=== PATIENT | male | born 1945 | race Caucasian/White ===

== ENCOUNTER 2018-01-06 21:44 | Emergency (ER) | payer OTHER ==
[~2018-01-06] VITALS: Ht 160 cm; Wt 62.1 kg
[2018-01-06 21:51] VITALS: BP 180/101
[2018-01-06] MEDS ORDERED: BACITRACIN OINT 500 UNITS/GM PKT TP ONE (22:25)
[2018-01-06] MEDS ORDERED: ACETAMINOPHEN 325 MG TAB PO ONE (22:25)
[2018-01-06] MEDS ORDERED: KETOROLAC 30 MG/ML VIAL IM ONE (22:25)
[2018-01-06 23:51] VITALS: BP 143/80
== END 2018-01-06 23:51 | disposition home or self-care (01) ==
LOC: MED 21:44
DX: S20.219A Contusion of unspecified front wall of thorax, initial encounter (principal); S40.011A Contusion of right shoulder, initial encounter; E11.9 Type 2 diabetes mellitus without complications; Z90.89 Acquired absence of other organs; V43.52XA Car driver injured in collision with other type car in traffic accident, initial encounter; Y93.I9 Activity, other involving external motion; Y92.488 Other paved roadways as the place of occurrence of the external cause; Y99.8 Other external cause status
CPT/HCPCS: 71250; 72125; 73130; 96372; 99284; J1885; Q0092

== ENCOUNTER 2018-01-08 20:43 | Emergency (ER) | payer OTHER ==
[~2018-01-08] VITALS: Ht 160 cm; Wt 56.7 kg
[2018-01-08 20:59] VITALS: BP 134/79
--- NOTE | 2018-01-08 21:03 | NUR ---
PT TRIAGED AND SENT TO ER LOBBY
--- NOTE | 2018-01-08 21:24 | NUR ---
PT AMBULATED TO BED 1 AT THIS TIME
--- NOTE | 2018-01-08 21:29 | NUR ---
PT C/O HAND SWELLING AND BLISTERS ON R HAND S/P ACCIDENT, SEEN HERE POST ACCIDENT LAST WEEK. NO OTHER COMPLAINTS AT THIS TIME. 02/01 PAIN, CMS INTACT.+ SWELLING. VSS HX: DIABETES MEDS: INSULIN
[2018-01-08] MEDS ORDERED: SULFAMETH/TRIMETH DS 800/160MG 1 TAB PO ONE (22:05)
[2018-01-08] MEDS ORDERED: BACITRACIN OINT 500 UNITS/GM PKT TP ONE (22:05)
[2018-01-08 22:26] VITALS: BP 128/75
--- NOTE | 2018-01-08 22:27 | NUR ---
Patient discharged with v/s stable. Written and verbal after care instructions given and explained. Patient alert, oriented and verbalized understanding of instructions. Ambulatory with steady gait. All questions addressed prior to discharge. ID band removed. Patient advised to follow up with PMD. Rx of BACTRIM AND BACITRACIN given. Patient educated on indication of medication including possible reaction and side effects. Opportunity to ask questions provided and answered.
== END 2018-01-08 22:26 | disposition home or self-care (01) ==
LOC: MED 20:43
DX: T23.201A Burn of second degree of right hand, unspecified site, initial encounter (principal); E11.9 Type 2 diabetes mellitus without complications; V49.9XXA Car occupant (driver) (passenger) injured in unspecified traffic accident, initial encounter; Y93.I9 Activity, other involving external motion; Y92.488 Other paved roadways as the place of occurrence of the external cause; Y99.8 Other external cause status
CPT/HCPCS: 16020; 99284

== ENCOUNTER 2018-01-12 12:09 | Emergency (ER) | payer MEDICARE, OTHER ==
[~2018-01-12] VITALS: Ht 160 cm; Wt 56.8 kg
[2018-01-12 12:39] VITALS: BP 101/55
--- NOTE | 2018-01-12 14:03 | NUR ---
PT AMBULATES W/ STEADY GAIT TO CHAIR E AT THIS TIME W/O INCIDENT.
--- NOTE | 2018-01-12 14:08 | NUR ---
PT C/O RECHECK FOR WEST AND BLISTERS ON R HAND. DENIES PAIN.
[2018-01-12 15:21] VITALS: BP 128/78
--- NOTE | 2018-01-12 15:22 | NUR ---
Patient discharged with v/s stable. Written and verbal after care instructions given and explained. Patient verbalized understanding. Ambulatory with steady gait. All questions addressed prior to discharge. Advised to follow up with PMD.
== END 2018-01-12 15:22 | disposition home or self-care (01) ==
LOC: MED 12:09
DX: T23.201D Burn of second degree of right hand, unspecified site, subsequent encounter (principal); E11.9 Type 2 diabetes mellitus without complications; W22.10XD Striking against or struck by unspecified automobile airbag, subsequent encounter; V43.92XD Unspecified car occupant injured in collision with other type car in traffic accident, subsequent encounter
CPT/HCPCS: 99283

== ENCOUNTER 2018-01-13 05:00 | Emergency (ER) | payer MEDICARE ==
[~2018-01-13] VITALS: Ht 160 cm; Wt 57.6 kg
[2018-01-13 05:05] VITALS: BP 162/69
--- NOTE | 2018-01-13 05:05 | NUR ---
TO BED # 11 AMBULATORY, REPORT GIVEN TO ANIYA RN
--- NOTE | 2018-01-13 05:10 | NUR ---
PATIENT IS A 72 Y/O MALE WHO PRESENTS TO THE ED FOR MED REFILL. PT WAS SEEN RECENTLY FOR TC IN ER, WAS GIVEN RX AND NOW REQUESTING REFILL. PT REPORTS 5/10 ACHING PAIN. PT DENIES CP, SOB, N/V/D. PT AWAKE AND ALERT, RR EVEN/UNLABORED. PT REPOSITIONED FOR COMFORT, BED IN LOWEST POSITION. ER MD DR. DIOP NOTIFIED. WILL CONTINUE TO MONITOR. Addendum: 01/13/18 at 0515 by MEDDCV PATIENT IS A 72 Y/O MALE WHO PRESENTS TO THE ED FOR MED REFILL. PT WAS SEEN RECENTLY FOR TC IN ER, WAS GIVEN RX AND NOW REQUESTING REFILL. PT REPORTS 10/10 ACHING PAIN. PT DENIES CP, SOB, N/V/D. PT AWAKE AND ALERT, RR EVEN/UNLABORED. PT REPOSITIONED FOR COMFORT, BED IN LOWEST POSITION. ER MD DR. DIOP NOTIFIED. WILL CONTINUE TO MONITOR.
[2018-01-13] MEDS ORDERED: BACITRACIN OINT 500 UNITS/GM PKT TP ONE ×2 (05:20→05:23)
--- NOTE | 2018-01-13 05:31 | NUR ---
PER VERBAL ORDER FROM ER MD, PT R HAND TREATED WITH BACITRACIN, XEROFORM DRESSING, NON ADHERENT DRESSING, AND ROLLER GAUZE. +CSM
[2018-01-13 05:40] VITALS: BP 145/82
--- NOTE | 2018-01-13 05:40 | NUR ---
Patient discharged with v/s stable. Written and verbal after care instructions given and explained. Patient alert, oriented and verbalized understanding of instructions. Ambulatory with steady gait. All questions addressed prior to discharge. ID band removed. Patient advised to follow up with PMD. Rx of BACTRIM 800MG-160MG, BACITRACIN 500U/G AND MOTRIN 600MG given. Patient educated on indication of medication including possible reaction and side effects. Opportunity to ask questions provided and answered.
== END 2018-01-13 05:40 | disposition home or self-care (01) ==
LOC: MED 05:00
DX: T23.01 Burn of unspecified degree of thumb (nail) (principal); E11.9 Type 2 diabetes mellitus without complications; Z76.0 Encounter for issue of repeat prescription; X08.8XXD Exposure to other specified smoke, fire and flames, subsequent encounter
CPT/HCPCS: 99283

== ENCOUNTER 2018-01-15 16:27 | Emergency (ER) | payer MEDICARE ==
[~2018-01-15] VITALS: Ht 165.1 cm; Wt 63.5 kg
[2018-01-15 16:44] VITALS: BP 127/61
--- NOTE | 2018-01-15 16:50 | NUR ---
Patient ambulated to bed 7. RN evaluating patient at bedside.
--- NOTE | 2018-01-15 16:51 | NUR ---
72 YO M BIB SELF FOR RECHECK OF RIGHT HAND. PT HAS BLISTERS NOTED TO R HAND AND IS REQUESTING RE-WRAP. PT WAS SEEN HERE ON TUESDAY.PT DENIES N/V/D; AAOX4, PERRL, WITH EVEN AND STEADY GAIT; LUNGS CLEAR BL, BREATHING UNLABORED; HR EVEN AND REGULAR, BL PERIPHERAL PULSES PRESENT; BS ACTIVE X4, NO TENDERNESS TO PALPATION, NO HEPATOSPLENOMEGALLY PALPATED, RESONANT TO PERCUSSION; PT DENIES ANY FEVER, CP, SOB, OR COUGH AT THIS TIME; PT STATES 0/10 PAIN AT THIS TIME; VSS; PATIENT POSITIONED FOR COMFORT; HOB ELEVATED; BEDRAILS UP X2; BED DOWN. HX DENIES RX ON FILE
--- NOTE | 2018-01-15 16:53 | NUR ---
Dr. Villegas evaluating patient at bedside.
[2018-01-15 17:24] VITALS: BP 129/79
== END 2018-01-15 17:25 | disposition home or self-care (01) ==
LOC: MED 16:27
DX: T23.201D Burn of second degree of right hand, unspecified site, subsequent encounter (principal); E11.9 Type 2 diabetes mellitus without complications; Z48.01 Encounter for change or removal of surgical wound dressing; X58.XXXD Exposure to other specified factors, subsequent encounter
CPT/HCPCS: 99283

== ENCOUNTER 2018-01-18 15:47 | Emergency (ER) | payer MEDICARE ==
[~2018-01-18] VITALS: Ht 160 cm; Wt 57.6 kg
[2018-01-18 16:03] VITALS: BP 112/62
[2018-01-18 17:39] VITALS: BP 112/62
== END 2018-01-18 17:40 | disposition home or self-care (01) ==
LOC: MED 15:47
DX: Z48.01 Encounter for change or removal of surgical wound dressing (principal); E11.9 Type 2 diabetes mellitus without complications; Z88.0 Allergy status to penicillin
CPT/HCPCS: 82948; 99281

== ENCOUNTER 2018-05-27 14:00 | Emergency (ER) | payer MEDICARE, OTHER ==
[~2018-05-27] VITALS: Ht 154.9 cm; Wt 57.7 kg
[2018-05-27 14:05] VITALS: BP 132/68
--- NOTE | 2018-05-27 14:05 | NUR ---
PATIENT TRIAGED. VSS, SENT TO ER LOBBY.
--- NOTE | 2018-05-27 14:06 | NUR ---
PATIENT UNABLE TO URINATE AT THIS TIME. PT GIVEN URINE CUP AND WATER.
--- NOTE | 2018-05-27 14:10 | NUR ---
72 Y/O M PT C/O URINARY/UTI SX'S SINCE LAST NIGHT, REPORTS PAIN AND BLOOD. PT DENIES N/V/D; SKIN IS INTACT, PINK/WARM/DRY; AAOX4, PERRL, WITH EVEN AND STEADY GAIT; LUNGS CLEAR BL, BREATHING UNLABORED; HR EVEN AND REGULAR, BL PERIPHERAL PULSES PRESENT; BS ACTIVE X4, NO TENDERNESS TO PALPATION, NO HEPATOSPLENOMEGALLY PALPATED, RESONANT TO PERCUSSION; PT DENIES ANY FEVER, CP, SOB, OR COUGH AT THIS TIME; PT STATES 7/10 PAIN AT THIS TIME; VSS; PATIENT POSITIONED FOR COMFORT; HOB ELEVATED; BEDRAILS UP X2; BED DOWN. PMH---DM ALLERGIES---PCN
--- NOTE | 2018-05-27 14:33 | NUR ---
INFORMED DR. SEAY THAT BS IS 437 AT THIS TIME. STATED WE WILL FIX IT.
[2018-05-27 15:00] LABS: BILIRUBIN,URINE 1+ (NEGATIVE); BLOOD, URINE 3+ (NEGATIVE); LEUKOCYTE ESTERASE ,URINE 2+ (NEGATIVE); NITRITE, URINE POSITIVE (NEGATIVE); UGLUCOSE 3+ (NEGATIVE)
--- NOTE | 2018-05-27 15:00 | NUR ---
ASKED AGAIN ABOUT BS 437 FOR PT, NO NEW ORDERS GIVEN.
[2018-05-27 15:01] LABS: APPEARANCE,URINE CLOUDY (CLEAR); COLOR,URINE BLOODY (YELLOW)
[2018-05-27 15:06] LABS: RBC,URINE TOO NUMEROUS TO COUN /HPF (0-5); WBC,URINE 60-80 /HPF (0-5)
[2018-05-27] MEDS ORDERED: KETOROLAC 60 MG/2 ML VIAL IM ONE (15:35)
[2018-05-27] MEDS ORDERED: cefTRIAXone 1,000 MG in LIDOCAINE 1% ***ER ONLY *** 2.1 ML IM ONE (15:35)
[2018-05-27] MEDS ORDERED: LEVOFLOXACIN 500 MG TAB PO ONE (15:35)
[2018-05-27] MEDS ORDERED: cefTRIAXone 1,000 MG VIAL ONE (15:47)
[2018-05-27] MEDS ORDERED: LIDOCAINE MPF 1% 5mL VIAL ONE (15:48)
[2018-05-27 16:39] VITALS: BP 129/65
--- NOTE | 2018-05-27 16:40 | NUR ---
Patient discharged with v/s stable. Written and verbal after care instructions given and explained. Patient alert, oriented and verbalized understanding of instructions. Ambulatory with steady gait. All questions addressed prior to discharge. ID band removed. Patient advised to follow up with PMD. Rx of FLOMAX, LEVAQUIN given. Patient educated on indication of medication including possible reaction and side effects. Opportunity to ask questions provided and answered.
[2018-05-28] MEDS ORDERED: HUM SUBQ (22:46)
== END 2018-05-27 16:40 | disposition home or self-care (01) ==
LOC: MED 14:00
DX: N39.0 Urinary tract infection, site not specified (principal); R31.9 Hematuria, unspecified; E11.9 Type 2 diabetes mellitus without complications; Z88.0 Allergy status to penicillin; Z79.4 Long term (current) use of insulin
CPT/HCPCS: 81001; 87086; 87186; 96372; 99283; J0696; J1885; J2001

== ENCOUNTER 2018-05-28 15:17 | Inpatient (IN) | payer MEDICARE, OTHER ==
[~2018-05-28] VITALS: Ht 157.5 cm; Wt 59.9 kg
[2018-05-28 15:35] VITALS: BP 103/56
--- NOTE | 2018-05-28 16:08 | NUR ---
PT C/O VOMITING SINCE TODAY. REPORTS ABD PAIN 11/01. PT WAS SEEN HERE YESTERDAY FOR BACK PAIN. VSS; PATIENT POSITIONED FOR COMFORT; HOB ELEVATED; BEDRAILS UP X1; BED DOWN. ER MD MADE AWARE OF PT STATUS.
[2018-05-28] MEDS ORDERED: METOCLOPRAMIDE 10 MG/2 ML INJ VIAL IVP ONE (16:15)
[2018-05-28] MEDS ORDERED: ONDANSETRON 4 MG/2 ML VIAL IVP ONE ×2 (16:15→19:20)
[2018-05-28] MEDS ORDERED: NACL 0.9% 1,000 ML IV ONE (16:15)
[2018-05-28] MEDS ORDERED: FAMOTIDINE 20 MG/2 ML VIAL IVP ONE (16:15)
[2018-05-28 16:43] LABS: HEMATOCRIT 39.2 % (36-52); HEMOGLOBIN 12.9 g/dL (12.0-18.0); LYMPHOCYTES # (AUTO) 1.1 K/uL (2.0-11.5); LYMPHOCYTES % (AUTO) 5.5 % (20.5-51.1); MEAN CORPUSCULAR HEMOGLOBIN 27 pg (27-31); MEAN CORPUSCULAR HGB CONC 33 g/dL (33-37); MEAN CORPUSCULAR VOLUME 81.9 fL (80-94); MONOCYTES # (AUTO) 1.7 K/uL (0.8-1.0); MONOCYTES % (AUTO) 8.6 % (1.7-9.3); NEUTROPHILS # (AUTO) 17.1 K/uL (1.8-7.7); NEUTROPHILS % (AUTO) 85.9 % (42.2-75.2); PLATELET COUNT (AUTO) 256 K/uL (140-450); RED BLOOD CELL COUNT(AUTO) 4.78 MIL/uL (4.20-6.10); RED CELL DISTRIBUTION WIDTH 13.1 % (11.6-13.7); WHITE BLOOD COUNT (AUTO) 19.9 K/uL (4.8-10.8)
[2018-05-28] MEDS: NACL 0.9% 1,000 ML IV SCH ×3 (16:45→23:06)
[2018-05-28 16:47] LABS: BILIRUBIN,URINE NEGATIVE (NEGATIVE); BLOOD, URINE 3+ (NEGATIVE); LEUKOCYTE ESTERASE ,URINE 3+ (NEGATIVE); NITRITE, URINE NEGATIVE (NEGATIVE); UGLUCOSE 2+ (NEGATIVE)
[2018-05-28 16:48] LABS: APPEARANCE,URINE CLOUDY (CLEAR); COLOR,URINE AMBER (YELLOW)
[2018-05-28 16:53] LABS: CARBON DIOXIDE 29.3 mmol/L (21-32); CHLORIDE 89 mmol/L (98-107); POTASSIUM 4.3 mmol/L (3.5-5.1); SODIUM SERUM 125 mmol/L (136-145)
[2018-05-28 16:54] LABS: CREATININE 1.4 mg/dL (0.7-1.3); GLUCOSE 145 mg/dL (74-106); UREA NITROGEN, BLOOD 30 mg/dL (7-18)
[2018-05-28 16:56] LABS: RBC,URINE TOO NUMEROUS TO COUN /HPF (0-5); WBC,URINE 80-100 /HPF (0-5)
[2018-05-28 17:00] LABS: ALBUMIN 2.9 g/dL (3.4-5.0); ASPARTATE AMINOTRANSFERASE 16 U/L (15-37); PROTHROMBIN TIME 10.1 secs (10.8-13.4); TOTAL BILIRUBIN 0.7 mg/dL (0.0-1.0)
[2018-05-28 17:01] LABS: AMYLASE 35 U/L (25-115); LIPASE 70 U/L (73-393)
--- NOTE | 2018-05-28 17:30 | NUR ---
PATIENT RESTING, FRIEND AT BEDSIDE
[2018-05-28] MEDS ORDERED: NACL 0.9% 1,000 ML IV SCH (17:31)
[2018-05-28] MEDS ORDERED: GENTAMICIN 80 MG in DEXTROSE 5% 100 ML IV ONE (17:35)
[2018-05-28] MEDS ORDERED: LEVOFLOXACIN 500 MG/D5W PREMIX 100 ML IV ONE (17:35)
[2018-05-28] MEDS ORDERED: GENTAMICIN 80 MG/2 ML VIAL ONE (17:46)
[2018-05-28] MEDS ORDERED: SODIUM PHOSPHATE 118 ML ENEM RC ONE (18:35)
--- NOTE | 2018-05-28 19:04 | NUR ---
REPORT FROM JOSE DE JESUS KELLER. FIRST CONTACT WITH PATIENT, PATIENT ON STRETCHER IN SUPINE POSITION EYES OPEN , RESPONDS TO QUESTIONS APPROPRIATELY. PATIENT ASSISTED ONTO BEDPAN AT THIS TIME.
--- NOTE | 2018-05-28 19:04 | NUR ---
REPORT GIVEN TO ARIANNA GORE.
[2018-05-28] MEDS ORDERED: MORPHINE SULFATE 4 MG/ML SYR IVP ONE (19:20)
--- NOTE | 2018-05-28 20:08 | NUR ---
PT AMBULATED TO RESTROOM AND HAD 1 MEDIUM SIZED BM PER PATIENT OF FORMED STOOL
--- NOTE | 2018-05-28 20:36 | NUR ---
PT UNAWARE OF HOME MEDICATION LIST
[2018-05-28] MEDS ORDERED: ONDANSETRON 4 MG/2 ML VIAL IM/IVP PRN (21:55)
[2018-05-28] MEDS ORDERED: HYDROcodone/APAP 7.5/325 MG 1 TAB PO PRN (21:55)
[2018-05-28] MEDS ORDERED: DOCUSATE SODIUM 100 MG GELCAP PO PRN (21:55)
[2018-05-28] MEDS ORDERED: ACETAMINOPHEN 325 MG TAB PO PRN (21:55)
--- NOTE | 2018-05-28 21:57 | NUR ---
PT ON STRETCHER IN SUPINE POSITION, RESPIS E/U, NO C/O CP OR SOB AT THIS TIME. BED IN LOW POSITION, SIDE RAILS UP, WILL CONTINUE TO MONITOR CLOSELY.
--- NOTE | 2018-05-28 22:19 | NUR ---
Patient will be admitted to care of [facility]. Admited to [facility]. Will go to room 111B. Belongings list completed. Report to SAMI KELLER.
[2018-05-28 22:20] VITALS: BP 154/70
--- NOTE | 2018-05-28 22:20 | NUR ---
REPORT RECEIVED FROM ED NURSE AT BEDSIDE. PT IN STABLE CONDITION. AAOX4. INTRODUCED SELF TO PT. BOARD UPDATED. NO COMPLAINTS OF PAIN. NO SOB. AFEBRILE. PT HAS COMPLAINTS OF VOMITING AND VOMITED X1 SINCE ARRIVING. IV SITE L FA 22G RUNNING NS@30ML/HR PATENT AND INTACT. SKIN WARM, DRY, AND INTACT WITH NO OPEN WOUNDS. PT HAD 3L BOLUS IN ER. BED LOCKED IN LOW POSITION. CALL ROMAN WITHIN REACH. SAFETY PRECAUTIONS IN PLACE. ALL NEEDS MET AT THIS TIME.
[2018-05-28] MEDS ORDERED: DEXTROSE 50% 50 ML SYR IVP PRN (22:40)
--- NOTE | 2018-05-28 22:40 | NUR ---
MRSA NARES SWAB SENT OUT. OCCULT BLOOD SENT OUT. URINE SODIUM SENT OUT.
[2018-05-28] MEDS ORDERED: HUM SUBQ (22:46)
--- NOTE | 2018-05-28 23:06 | NUR ---
REMEDIOS TO AND RUNNING. PT TOLERATING WELL.
[2018-05-28] MEDS ORDERED: cefTRIAXone 1,000 MG VIAL ONE (23:12)
--- NOTE | 2018-05-28 23:15 | NUR ---
POST-VOID RESIDUAL DONE. PT ORIGINALLY URINATED 125ML. BLADDER SCAN SHOWED 510ML REMAINING IN BLADDER. MD ORDERED HOLDER.
--- NOTE | 2018-05-28 23:21 | NUR ---
MIRALAX GIVEN PO. PT TOLERATED WELL.
[2018-05-28] MEDS ORDERED: POLYETHYLENE GLYCOL 17 GM/PKT PO SCH (23:30)
--- NOTE | 2018-05-28 23:30 | NUR ---
HOLDER INSERTED. 16FR. STERILE PRECAUTIONS TAKEN. BALLOON TESTED. BALLOON FILLED UP TO 10ML AFTER FLASH OF URINE AND FURTHER ADVANCEMENT OF HOLDER.
[2018-05-28 23:46] LABS: CHOL/HDL RATIO 3.2 (1-4.5); MAGNESIUM 1.6 mg/dL (1.8-2.4); PHOSPHORUS 2.6 mg/dL (2.5-4.9); THYROID STIMULATING HORMONE 1.51 uIU/mL (0.34-3.74)
--- NOTE | 2018-05-29 00:21 | NUR ---
MAG HUNG AND RUNNING. NORCO GIVEN FOR 5/10 PAIN AT HOLDER SITE.
[2018-05-29] MEDS ORDERED: MAG SULF 2000 MG/WATER PREMIX 50 ML IV SCH (00:30)
--- NOTE | 2018-05-29 02:00 | NUR ---
PT SLEEPING COMFORTABLY IN BED. NO S/S OF DISTRESS NOTED. WILL CONTINUE TO MONITOR.
[2018-05-29 04:00] VITALS: BP_SYST 106; BP_SYST 125; BP_DIAS 50; BP_DIAS 62
--- NOTE | 2018-05-29 04:00 | NUR ---
LAB IN TO DRAW BLOOD FOR PT. PT AROUSABLE. VS STABLE. NO S/S OF DISTRESS NOTED. RESPIRATIONS EVEN, UNLABORED, AND WNL. NO N/V. WILL CONTINUE TO MONITOR.
[2018-05-29 04:26] LABS: ANION GAP 5.8 (8-16); CARBON DIOXIDE 26.5 mmol/L (21-32); CHLORIDE 97 mmol/L (98-107); CREATININE 1.1 mg/dL (0.7-1.3); GLUCOSE 128 mg/dL (74-106); POTASSIUM 4.3 mmol/L (3.5-5.1); SODIUM SERUM 125 mmol/L (136-145); UREA NITROGEN, BLOOD 20 mg/dL (7-18)
[2018-05-29] MEDS ORDERED: INFLUENZA VIRUS VACCINE QUAD 0.5 ML SYR IMVAC PRN (04:30)
[2018-05-29] MEDS ORDERED: PNEUMOCOCCAL VACCINE 23 MCG/0.5 ML VIAL IMVAC PRN (04:30)
[2018-05-29] MEDS: BLOOD GLUCOSE MONITORING 1 DEV DEV FS SCH ×4 (05:57→20:51)
--- NOTE | 2018-05-29 05:57 | NUR ---
BS 122. NO INSULIN COVERAGE REQUIRED.
--- NOTE | 2018-05-29 07:10 | NUR ---
REPORT GIVEN TO AM NURSE AT BEDSIDE. PT IN STABLE CONDITION.
--- NOTE | 2018-05-29 07:11 | NUR ---
RECEIVED BEDSIDE REPORT FROM ROLLER COASTER ENGINEER NURSE. PATIENT IS AWAKE, ALERT AND ORIENTEDX4. NO SIGNS OF DISTRESS ON RA. GAIT IS STEADY. SKIN IS INTACT. HOLDER CATH IN PLACE. TELE MONITOR IN PLACE. L FA 20G INFUSING NS AT 30. CLEAN, DRY AND INTACT. PATIENT IS CONTINENT. BED IN LOW POSITION. CALL LIGHT WITHIN REACH. WILL CONTINUE TO MONITOR THE PATIENT.
[2018-05-29 08:00] VITALS: BP 142/63
--- NOTE | 2018-05-29 08:07 | NUR ---
PATIENT HAS BEEN SCREENED AND CATEGORIZED HIGH NUTRITION RISK. PATIENT WILL BE SEEN WITHIN 1-2 DAYS OF ADMISSION. 05/29/18-05/30/[address]
[2018-05-29] MEDS: TAMSULOSIN 0.4 MG CAP PO SCH (08:42)
[2018-05-29] MEDS: LACTOBACILLUS RHAMNOSUS GG 1 EACH CAP PO SCH (08:42)
--- NOTE | 2018-05-29 08:51 | NUR ---
ADMINISTERED MEDS. PATIENT TOLERATED WELL. NO SIGNS OF DISTRESS. PATIENT FINISHING BREAKFAST. WILL CONTINUE TO MONITOR
[2018-05-29] MEDS ORDERED: PROMETHAZINE 25 MG/ML VIAL IVP SCH (09:00)
[2018-05-29 09:16] LABS: BASOPHILS % (AUTO) 0.2 % (0.0-2.0); EOSINOPHILS % (AUTO) 0.2 % (0.0-4.0); HEMATOCRIT 39.4 % (36-52); HEMOGLOBIN 13.1 g/dL (12.0-18.0); LYMPHOCYTES # (AUTO) 0.7 K/uL (2.0-11.5); LYMPHOCYTES % (AUTO) 4.5 % (20.5-51.1); MEAN CORPUSCULAR HEMOGLOBIN 28 pg (27-31); MEAN CORPUSCULAR HGB CONC 33 g/dL (33-37); MEAN CORPUSCULAR VOLUME 82.9 fL (80-94); MONOCYTES # (AUTO) 0.9 K/uL (0.8-1.0); MONOCYTES % (AUTO) 5.8 % (1.7-9.3); NEUTROPHILS # (AUTO) 13.3 K/uL (1.8-7.7); NEUTROPHILS % (AUTO) 89.3 % (42.2-75.2); PLATELET COUNT (AUTO) 251 K/uL (140-450); RED BLOOD CELL COUNT(AUTO) 4.75 MIL/uL (4.20-6.10); RED CELL DISTRIBUTION WIDTH 12.8 % (11.6-13.7); WHITE BLOOD COUNT (AUTO) 14.9 K/uL (4.8-10.8)
[2018-05-29 09:21] LABS: ANION GAP 8.8 (8-16); CARBON DIOXIDE 25.5 mmol/L (21-32); CHLORIDE 94 mmol/L (98-107); GLUCOSE 139 mg/dL (74-106); POTASSIUM 4.3 mmol/L (3.5-5.1); UREA NITROGEN, BLOOD 17 mg/dL (7-18)
[2018-05-29 09:57] LABS: SODIUM SERUM 124 mmol/L (136-145)
[2018-05-29] MEDS: LEVOFLOXACIN 500 MG/D5W PREMIX 100 ML IV SCH (10:21)
--- NOTE | 2018-05-29 10:25 | NUR ---
ADMINISTERED IVPB ANTIBIOTICS. PATIENT TOLERATING WELL. NO SIGNS OF DISTRESS. COLLECTOR OF INTERNAL REVENUE AT BEDSIDE. WILL CONTINUE TO MONITOR THE PATIENT
--- NOTE | 2018-05-29 11:30 | NUR ---
PATIENT TALKING TO RESIDENTIAL CAREGIVER AT THIS TIME. NO SIGNS OF DISTRESS. BS AT 332. WILL GIVE INSULIN
[2018-05-29] MEDS ORDERED: MORPHINE SULFATE 2 MG/ML SYR IVP PRN (11:40)
[2018-05-29 12:00] VITALS: BP 125/64
[2018-05-29] MEDS: INSULIN LISPRO SLIDING SCALE 100 UNITS/ML VIAL SUBQ PRN ×2 (12:14→20:53)
--- NOTE | 2018-05-29 12:22 | NUR ---
ADMINISTERED INSULIN. PATIENT TOLERATED WELL. IRRIGATED HOLDER. PATIENT TOLERATED WELL. WILL CONTINUE TO MONITOR PATIENT. LAB IN TO DRAW BLOOD.
[2018-05-29 13:24] LABS: ANION GAP 9.7 (8-16); CARBON DIOXIDE 25.1 mmol/L (21-32); CHLORIDE 95 mmol/L (98-107); CREATININE 1.1 mg/dL (0.7-1.3); GLUCOSE 338 mg/dL (74-106); POTASSIUM 4.8 mmol/L (3.5-5.1); SODIUM SERUM 125 mmol/L (136-145); UREA NITROGEN, BLOOD 17 mg/dL (7-18)
--- NOTE | 2018-05-29 13:38 | NUR ---
05/29/18 RD INITIAL ASSESSMENT COMPLETED PLEASE REFER TO NUTRITION ASSESSMENT UNDER CARE ACTIVITY FOR ESTIMATED NUTRITIONAL NEEDS. 1. CONTINUE CCHO 60 GM DIET TOLERATED 2. DISCONTINUE RENAL DIET 3. RD PROVIDED PATIENT WITH DIABETES NUTRITION EDUCATION 4. RD TO FOLLOW-UP 3-5 DAYS, MODERATE RISK TOMI NICOLE RD
--- NOTE | 2018-05-29 13:39 | NUR ---
patient awake, talking to youth officer at bedside. bed in low position. call light within reach. will continue to monitor the patient
[2018-05-29] MEDS: NACL 0.9% 1,000 ML IV SCH ×2 (14:24→23:12)
[2018-05-29 14:54] LABS: MAGNESIUM 2.3 mg/dL (1.8-2.4); PHOSPHORUS 2.8 mg/dL (2.5-4.9)
--- NOTE | 2018-05-29 15:24 | NUR ---
PATIENT IS SLEEPING. EMPTIED 1,900 ML FROM HOLDER
[2018-05-29 19:15] LABS: ANION GAP 8.5 (8-16); CARBON DIOXIDE 26.8 mmol/L (21-32); CHLORIDE 99 mmol/L (98-107); CREATININE 1.3 mg/dL (0.7-1.3); GLUCOSE 146 mg/dL (74-106); POTASSIUM 4.3 mmol/L (3.5-5.1); SODIUM SERUM 130 mmol/L (136-145); UREA NITROGEN, BLOOD 18 mg/dL (7-18)
--- NOTE | 2018-05-29 22:06 | NUR ---
PT. SLEEPING AT THIS TIME. CALL LIGHT WITH IN REACH. NO SOB. DENIES PAIN AT THIS TIME.
[2018-05-30 00:52] VITALS: BP 118/43
--- NOTE | 2018-05-30 01:01 | NUR ---
PROVIDED WITH DM SNACK EARLIER. SLEEPING WELL AT THIS TIME. CALL LIGHT WITH IN REACH.
--- NOTE | 2018-05-30 03:00 | NUR ---
PT. SLEEPING WELL. ABLE TO USE CALL LIGHT FOR HELP. NO SOB.
[2018-05-30] MEDS: NACL 0.9% 1,000 ML IV SCH ×2 (03:05→13:45)
[2018-05-30 06:16] LABS: T4 (THYROXINE) 8.2 ug/dL (4.5-12.0)
[2018-05-30] MEDS: BLOOD GLUCOSE MONITORING 1 DEV DEV FS SCH ×4 (06:22→20:58)
[2018-05-30] MEDS: INSULIN LISPRO SLIDING SCALE 100 UNITS/ML VIAL SUBQ PRN ×3 (06:22→21:00)
[2018-05-30 06:59] LABS: BASOPHILS % (AUTO) 0.2 % (0.0-2.0); EOSINOPHILS # (AUTO) 0.2 K/uL (0-0.4); EOSINOPHILS % (AUTO) 1.7 % (0.0-4.0); HEMATOCRIT 39.4 % (36-52); HEMOGLOBIN 13.2 g/dL (12.0-18.0); LYMPHOCYTES # (AUTO) 0.8 K/uL (2.0-11.5); LYMPHOCYTES % (AUTO) 9.1 % (20.5-51.1); MEAN CORPUSCULAR HEMOGLOBIN 28 pg (27-31); MEAN CORPUSCULAR HGB CONC 33 g/dL (33-37); MEAN CORPUSCULAR VOLUME 83.1 fL (80-94); MONOCYTES # (AUTO) 0.9 K/uL (0.8-1.0); MONOCYTES % (AUTO) 9.4 % (1.7-9.3); NEUTROPHILS # (AUTO) 7.3 K/uL (1.8-7.7); NEUTROPHILS % (AUTO) 79.6 % (42.2-75.2); PLATELET COUNT (AUTO) 309 K/uL (140-450); RED BLOOD CELL COUNT(AUTO) 4.74 MIL/uL (4.20-6.10); RED CELL DISTRIBUTION WIDTH 12.9 % (11.6-13.7); WHITE BLOOD COUNT (AUTO) 9.1 K/uL (4.8-10.8)
[2018-05-30 07:16] LABS: ANION GAP 8.5 (8-16); CARBON DIOXIDE 24.9 mmol/L (21-32); CHLORIDE 108 mmol/L (98-107); GLUCOSE 242 mg/dL (74-106); POTASSIUM 4.4 mmol/L (3.5-5.1); SODIUM SERUM 137 mmol/L (136-145); UREA NITROGEN, BLOOD 16 mg/dL (7-18)
--- NOTE | 2018-05-30 07:25 | NUR ---
ENDORSED TO THE NEXT RN FOR CONTINUITY OF CARE. SLEPT WELL THIS SHIFT. NO COMPLAITS DONE.
--- NOTE | 2018-05-30 07:26 | NUR ---
RECEIVED BEDSIDE REPORT FROM HAND WOODWORKING SANDER NURSE. PATIENT IS AWAKE, ALERT AND ORIENTEDX4. NO SIGNS OF DISTRESS ON RA. SKIN IS INTACT. PATIENT IS AMBULATORY, PATIENT IS CONTINENT. HOLDER CATH IN PLACE, IV ON L FA 20G INFUSING NS AT 120. CLEAN, DRY AND INTACT. MED SURGE PATIENT. BED IN LOW POSITION. CALL LIGHT WITHIN REACH, WILL CONTINUE TO MONITOR THE PATIENT
[2018-05-30 07:27] LABS: MAGNESIUM 2.1 mg/dL (1.8-2.4)
[2018-05-30 08:00] VITALS: BP 143/71
[2018-05-30] MEDS: TAMSULOSIN 0.4 MG CAP PO SCH (09:00)
[2018-05-30] MEDS: LACTOBACILLUS RHAMNOSUS GG 1 EACH CAP PO SCH (09:00)
[2018-05-30] MEDS: LEVOFLOXACIN 500 MG/D5W PREMIX 100 ML IV SCH (09:01)
--- NOTE | 2018-05-30 09:06 | NUR ---
ADMINISTERED MEDS. PATIENT TOLERATED WELL. NO SIGNS OF DISTRESS. WILL CONTINUE TO MONITOR THE PATIENT.
--- NOTE | 2018-05-30 10:10 | NUR ---
REMOVED HOLDER PER DR ORDER. PATIENT TOLERATED WELL. NO SIGNS OF DISTRESS. WILL CONTINUE TO MONITOR
--- NOTE | 2018-05-30 11:30 | NUR ---
PATIENT CURRENTLY ON THE PHONE. NO SIGNS OF DISTRESS. WILL CONTINUE TO MONITOR THE PATIENT.
[2018-05-30] MEDS: SODIUM PHOS / POTASSIUM PHOS 1 PKT PDR PO SCH ×2 (12:21→17:03)
--- NOTE | 2018-05-30 12:24 | NUR ---
ADMINISTERED MEDS. PATIENT TOLERATED WELL. PATIENT EATING LUNCH. WILL CONTINUE TO MONITOR THE PATIENT
--- NOTE | 2018-05-30 12:50 | NUR ---
patient ambulated around the halls multiple times. gait is steady. no signs of distress. will continue to monitor the patient
--- NOTE | 2018-05-30 13:45 | NUR ---
administered ivf ns at 100. iv is clean, dry and intact. will continue to monitor the patient.
--- NOTE | 2018-05-30 15:33 | NUR ---
PATIENT SLEEPING. NO SIGNS OF DISTRESS. WILL CONTINUE TO MONITOR THE PATIENT
[2018-05-30 16:00] VITALS: BP 147/65
--- NOTE | 2018-05-30 17:12 | NUR ---
ADMINISTERED MED. PATIENT TOLERATED WELL. WILL CONTINUE TO MONITOR THE PATIENT.
--- NOTE | 2018-05-30 18:27 | NUR ---
patient sitting in bed. no signs of distress. will continue to monitor
--- NOTE | 2018-05-30 19:16 | NUR ---
gave bedside report to night stocker nurse. patient endorsed in stable condition
--- NOTE | 2018-05-30 19:26 | NUR ---
RECEIVED FROM AM RN IN BED. SLEEPING. NO COMPLAINTS DONE. CALL LIGHT WITH IN REACH . WAKES UP EASILY WHEN TOUCHED. NO RESTLESSNESS NOTED. IVF SITE INTACT AND NO INFILTRATION NOTED.
--- NOTE | 2018-05-30 22:00 | NUR ---
PT. STILL AWAKE AND WATCHING TV AT THIS TIME. DENIES PAIN. ENCOURAGED TO CALL FOR HELP FOR ASSIST AND IF IN PAIN.
[2018-05-31] MEDS: NACL 0.9% 1,000 ML IV SCH (00:04)
[2018-05-31 00:10] VITALS: BP 121/55
--- NOTE | 2018-05-31 00:45 | NUR ---
VITAL SIGNS TAKEN AND NO COMPLAINTS OF PAIN DONE. SEEN PT. GO BRP INSIDE ROOM BY HIMSELF WITH OUT ASSIST. A/O X 4. ROM X 4.
--- NOTE | 2018-05-31 03:41 | NUR ---
SLEEPING WELL. CALL LIGHT WITH IN REACH. ABLE TO VERBALIZE NEEDS WELL.
[2018-05-31 06:09] LABS: BASOPHILS % (AUTO) 0.5 % (0.0-2.0); EOSINOPHILS # (AUTO) 0.2 K/uL (0-0.4); EOSINOPHILS % (AUTO) 3.9 % (0.0-4.0); HEMOGLOBIN 12.5 g/dL (12.0-18.0); LYMPHOCYTES # (AUTO) 0.9 K/uL (2.0-11.5); LYMPHOCYTES % (AUTO) 14.8 % (20.5-51.1); MEAN CORPUSCULAR HEMOGLOBIN 27 pg (27-31); MEAN CORPUSCULAR HGB CONC 33 g/dL (33-37); MEAN CORPUSCULAR VOLUME 82.6 fL (80-94); MONOCYTES # (AUTO) 0.8 K/uL (0.8-1.0); MONOCYTES % (AUTO) 12.8 % (1.7-9.3); NEUTROPHILS # (AUTO) 4.2 K/uL (1.8-7.7); PLATELET COUNT (AUTO) 311 K/uL (140-450); RED CELL DISTRIBUTION WIDTH 12.9 % (11.6-13.7); WHITE BLOOD COUNT (AUTO) 6.1 K/uL (4.8-10.8)
[2018-05-31] MEDS: INSULIN LISPRO SLIDING SCALE 100 UNITS/ML VIAL SUBQ PRN (06:10)
[2018-05-31] MEDS: BLOOD GLUCOSE MONITORING 1 DEV DEV FS SCH (06:10)
[2018-05-31 06:19] LABS: ANION GAP 9.9 (8-16); CARBON DIOXIDE 25.2 mmol/L (21-32); CHLORIDE 108 mmol/L (98-107); GLUCOSE 198 mg/dL (74-106); POTASSIUM 4.1 mmol/L (3.5-5.1); SODIUM SERUM 139 mmol/L (136-145); UREA NITROGEN, BLOOD 13 mg/dL (7-18)
[2018-05-31 06:26] LABS: MAGNESIUM 1.9 mg/dL (1.8-2.4); PHOSPHORUS 2.9 mg/dL (2.5-4.9)
--- NOTE | 2018-05-31 07:05 | NUR ---
PT. AWAKE AT THIS TIME. AMBULATED WELL TO RESTROOM. INDEPENDENT. ABLE TO USE CALL LIGHT FOR ANY HELP HE NEEDS. NO PAIN COMPLAINTS DONE.
--- NOTE | 2018-05-31 07:06 | NUR ---
RECEIVED REPORT FROM PAVILION CUTTER NURSE. PT IN STABLE CONDITION. RESPIRATIONS EVEN AND UNLABORED. IV INTACT AND PATENT. SAFETY MEASURES IN PLACE. BED IN LOW POSITION. CALL LIGHT AT BEDSIDE. WILL CONTINUE TO MONITOR.
[2018-05-31 08:00] VITALS: BP 155/69
[2018-05-31] MEDS ORDERED: LACT10CA PO (08:49)
[2018-05-31] MEDS ORDERED: LEVO500T2 PO (08:49)
[2018-05-31] MEDS ORDERED: TAMS0.4C96 PO (08:49)
--- NOTE | 2018-05-31 09:00 | NUR ---
GAVE ORDERED DUE MEDICATIONS. PT TOLERATED WELL. WILL CONTINUE TO MONITOR.
[2018-05-31] MEDS ORDERED: INSU100S22 SUBQ (09:03)
[2018-05-31] MEDS: SODIUM PHOS / POTASSIUM PHOS 1 PKT PDR PO SCH (09:58)
[2018-05-31] MEDS: LACTOBACILLUS RHAMNOSUS GG 1 EACH CAP PO SCH (09:58)
[2018-05-31] MEDS: TAMSULOSIN 0.4 MG CAP PO SCH (09:59)
[2018-05-31] MEDS: LEVOFLOXACIN 500 MG/D5W PREMIX 100 ML IV SCH (10:06)
--- NOTE | 2018-05-31 12:00 | NUR ---
PT LYING IN BED SLEEPING AT THIS TIME. RESPIRATIONS EVEN AND UNLABORED. WILL CONTINUE TO MONITOR.
--- NOTE | 2018-05-31 14:40 | NUR ---
GAVE DISCHARGE INSTRUCTIONS AND INFORMATION OF WHERE TO PRICING ACTUARY PRESCRIPTION MEDICATIONS, PT VERBALIZED UNDERSTANDING. REMOVED IV, LUMEN INTACT. REMOVED ID BAND. PT REFUSED WHEELCHAIR. WALKED PT TO LOBBY WHERE FAMILY WAS WAITING WITH CAR. PT IN STABLE CONDITION.
== END 2018-05-31 14:40 | disposition home or self-care (01) | DRG 871 ==
LOC: MED 15:17 → MTU 21:54
PROVIDERS: ADMIT General Practice; ATTEND General Practice
PROC: 3E02340 Introduction of Influenza Vaccine into Muscle, Percutaneous Approach (ICD-10-PCS; principal; 2018-05-29)
PROC: 3E0234Z Introduction of Serum, Toxoid and Vaccine into Muscle, Percutaneous Approach (ICD-10-PCS; 2018-05-29)
DX: A41.9 Sepsis, unspecified organism (principal); N17.0 Acute kidney failure with tubular necrosis; N39.0 Urinary tract infection, site not specified; E87.1 Hypo-osmolality and hyponatremia; E44.0 Moderate protein-calorie malnutrition; N13.8 Other obstructive and reflux uropathy; K59.00 Constipation, unspecified; E86.0 Dehydration; N32.3 Diverticulum of bladder; N41.9 Inflammatory disease of prostate, unspecified; E83.39 Other disorders of phosphorus metabolism; N40.1 Benign prostatic hyperplasia with lower urinary tract symptoms; E11.65 Type 2 diabetes mellitus with hyperglycemia; Z68.24 Body mass index [BMI] 24.0-24.9, adult; Z88.0 Allergy status to penicillin; Z23 Encounter for immunization
CPT/HCPCS: 36415; 71045; 80048; 80053; 81001; 82140; 82150; 82272; 82948; 83036; 83605; 83690; 83735; 83880; 83930; 84100; 84154; 84300; 84436; 84443; 84479; 84484; 85025; 85610; 85730; 87040; 87081; 87086; 90658; 90732; 93005; 96361; 96365; 96368; 96375; 96376; 99285; C1758; J0696; J1580; J1644; J1815; J1956; J2270; J2405; J2550; J2765; J3475; J3490; J7030; J7060; Q0092

== ENCOUNTER 2020-02-02 18:00 | Emergency (ER) | payer OTHER ==
[~2020-02-02] VITALS: Ht 157.5 cm; Wt 60.8 kg
[~2020-02-02 18:00] MED LIST: INSU100S22 SUBQ; LACT10CA PO; LEVO500T2 PO; TAMS0.4C96 PO
[2020-02-02 18:05] VITALS: BP 132/65
--- NOTE | 2020-02-02 18:24 | NUR ---
74 YO MALE PT C/O MALENA LOWER BACK PAIN FOR 2 DAYS. DENIES URINARY INCONTINENCE, BURNING SENSATION OF URINATION. DNEIES FEVER, CHILLS, TRAUMA, INJURY TO THE BACK, OR HX OF FALL. PMH: DM MEDS: INSULIN
[2020-02-02] MEDS ORDERED: KETOROLAC 60 MG/2 ML VIAL IM ONE (18:40)
--- NOTE | 2020-02-02 19:10 | NUR ---
RECEIVED REPORT FROM DAY SHIFT; PT @ CT.
--- NOTE | 2020-02-02 19:18 | NUR ---
PT BACK FROM CT
--- NOTE | 2020-02-02 19:19 | NUR ---
PT AWAKE AMB IN ROOM, DENIES PAIN AND LOWER BACK PAIN @ THIS TIME. NO ACUTE DISTRESS NOTED. WILL CONTINUE TO OBSERVE.
[2020-02-02 19:49] VITALS: BP 123/60
--- NOTE | 2020-02-02 19:50 | NUR ---
Patient discharged with v/s stable. Written and verbal after care instructions given and explained. Patient alert, oriented and verbalized understanding of instructions. Ambulatory with steady gait. All questions addressed prior to discharge. ID band removed. Patient advised to follow up with PMD. Rx of ROBAXIN, MOTRIN given. Patient educated on indication of medication including possible reaction and side effects. Opportunity to ask questions provided and answered.
== END 2020-02-02 19:49 | disposition home or self-care (01) ==
LOC: MED 18:00
DX: S39.012A Strain of muscle, fascia and tendon of lower back, initial encounter (principal); E11.9 Type 2 diabetes mellitus without complications; Z88.0 Allergy status to penicillin; Z79.899 Other long term (current) drug therapy; X58.XXXA Exposure to other specified factors, initial encounter; Y93.89 Activity, other specified; Y92.89 Other specified places as the place of occurrence of the external cause; Y99.8 Other external cause status
CPT/HCPCS: 72131; 82948; 96372; 99284; J1885

== ENCOUNTER 2020-04-03 13:49 | Emergency (ER) | payer OTHER ==
[~2020-04-03] VITALS: Ht 165.1 cm; Wt 65.8 kg
[2020-04-03 15:24] VITALS: BP 132/68
--- NOTE | 2020-04-03 15:30 | NUR ---
CC: NON TRAUMATIC LEFT LEG PAIN X2 DAYS AND LEFT ARM RASH, SKIN IS SCABBED AND IRRITATED. PT STATES HE TOOK BENADRYL AND IT IMPROVED. ALLERGIES: PENICILLINS PMH: DM
[2020-04-03 15:46] VITALS: BP 132/68
--- NOTE | 2020-04-03 15:50 | NUR ---
Patient discharged with v/s stable. Written and verbal after care instructions given and explained. Patient alert, oriented and verbalized understanding of instructions. Ambulatory with steady gait. All questions addressed prior to discharge. ID band removed. Patient advised to follow up with PMD. Rx of NORCO, NAPROSYN, ACYCLOVIR given. Patient educated on indication of medication including possible reaction and side effects. Opportunity to ask questions provided and answered.
== END 2020-04-03 15:56 | disposition home or self-care (01) ==
LOC: MED 13:49
DX: B02.9 Zoster without complications (principal); M54.30 Sciatica, unspecified side; R03.0 Elevated blood-pressure reading, without diagnosis of hypertension; E11.9 Type 2 diabetes mellitus without complications; Z88.0 Allergy status to penicillin; Z90.49 Acquired absence of other specified parts of digestive tract; Z79.899 Other long term (current) drug therapy
CPT/HCPCS: 99283

== ENCOUNTER 2020-04-08 15:07 | Emergency (ER) | payer OTHER ==
[~2020-04-08] VITALS: Ht 160 cm; Wt 72.1 kg
[2020-04-08 15:57] VITALS: BP 140/71
--- NOTE | 2020-04-08 16:28 | NUR ---
Patient discharged with v/s stable. Written and verbal after care instructions given and explained. Patient verbalized understanding. Ambulatory with steady gait. All questions addressed prior to discharge. Advised to follow up with PMD. No nursing care provided in our ER.
== END 2020-04-08 16:28 | disposition home or self-care (01) ==
LOC: MED 15:07
DX: M54.42 Lumbago with sciatica, left side (principal); E11.9 Type 2 diabetes mellitus without complications; Z79.4 Long term (current) use of insulin; Z88.0 Allergy status to penicillin; Z79.899 Other long term (current) drug therapy
CPT/HCPCS: 99281

== ENCOUNTER 2020-04-15 08:50 | Emergency (ER) | payer OTHER ==
--- NOTE | 2020-04-15 09:02 | NUR ---
PATIENT LEFT WITHOUT BEING SEEN BY . NO FURTHER CARE PROVIDED FOR PATIENT.
== END 2020-04-15 09:02 | disposition left against medical advice (07) ==
LOC: MED 08:50
DX: Z53.21 Procedure and treatment not carried out due to patient leaving prior to being seen by health care provider (principal)